=== PATIENT | female | born 1985 | race African-American/Black ===

== ENCOUNTER 2017-04-14 00:57 | Emergency (ER) | payer MEDICAID ==
[~2017-04-14] VITALS: Ht 165.1 cm; Wt 70.0 kg
[2017-04-14 02:15] VITALS: BP 113/87
== END 2017-04-14 05:29 | disposition left against medical advice (07) ==
LOC: ER 03:19
DX: J02.9 Acute pharyngitis, unspecified (principal); Z53.21 Procedure and treatment not carried out due to patient leaving prior to being seen by health care provider

== ENCOUNTER 2017-04-27 02:22 | Emergency (ER) | payer MEDICAID ==
[~2017-04-27] VITALS: Ht 165.1 cm; Wt 77.5 kg
[2017-04-27 03:08] VITALS: BP 138/94
== END 2017-04-27 03:34 | disposition left against medical advice (07) ==
LOC: ER 02:22
DX: Z04.8 Encounter for examination and observation for other specified reasons (principal); Z53.21 Procedure and treatment not carried out due to patient leaving prior to being seen by health care provider

== ENCOUNTER 2020-03-22 11:10 | Emergency (ER) | payer MEDICAID ==
[~2020-03-22] VITALS: Ht 165.1 cm; Wt 73.0 kg
[2020-03-22 11:13] VITALS: BP 152/104
== END 2020-03-22 16:16 | disposition left against medical advice (07) ==
LOC: ER 11:10
DX: R07.89 Other chest pain (principal); Z53.21 Procedure and treatment not carried out due to patient leaving prior to being seen by health care provider
CPT/HCPCS: 82962; 93005

== ENCOUNTER 2020-11-25 01:32 | Observation (INO) | payer MEDICAID, OTHER | END 2020-11-25 02:40 | disposition home or self-care, planned readmission (81) | LOC: 8 EST A/PP 01:32 | PROVIDERS: ADMIT Obstetrics & Gynecology; ATTEND Obstetrics & Gynecology | DX: O26.892 Other specified pregnancy related conditions, second trimester (principal); R55 Syncope and collapse; O30.003 Twin pregnancy, unspecified number of placenta and unspecified number of amniotic sacs, third trimester; Z3A.24 24 weeks gestation of pregnancy | CPT/HCPCS: 59025; 76805; 76810; 99281; G0378 ==

== ENCOUNTER 2020-12-04 08:46 | Observation (INO) | payer MEDICAID ==
[~2020-12-04] VITALS: Ht 165.1 cm; Wt 74.8 kg
[2020-12-04 11:24] LABS: CLARITY URINE CLEAR (CLEAR); COLOR URINE YELLOW (YELLOW); KETONES URINE NEGATIVE (NEGATIVE); LEUKOCYTE ESTERASE URINE TRACE (NEGATIVE); NITRITE URINE NEGATIVE (NEGATIVE); OCCULT BLOOD URINE 3+ (NEGATIVE); PROTEIN URINE NEGATIVE (NEGATIVE); SPECIFIC GRAVITY URINE 1.022 (1.005-1.030)
[2020-12-04 11:45] LABS: *BARBITURATES SCREEN URINE NEGATIVE (NEGATIVE); *BENZODIAZEPINES SCREEN URINE NEGATIVE (NEGATIVE)
[2020-12-04 11:46] LABS: *COCAINE SCREEN URINE NEGATIVE (NEGATIVE); METHADONE URINE SCREEN NEGATIVE (NEGATIVE); OPIATES URINE SCREEN NEGATIVE (NEGATIVE)
[2020-12-04 12:03] LABS: *AMPHETAMINES SCREEN URINE PRESUMTIVE POSITIVE (NEGATIVE); CANNABINOID URINE SCREEN PRESUMTIVE POSITIVE (NEGATIVE); PHENCYCLIDINE URINE SCREEN PRESUMTIVE POSITIVE (NEGATIVE)
[2020-12-04 12:20] LABS: BASOPHILS % 0.4 % (0.0-2.0); EOSINOPHILS % 0.7 % (0.0-5.0); HEMATOCRIT. 32.1 % (36.0-48.0); HEMOGLOBIN. 10.6 g/dL (12.0-16.0); MEAN CORPUSCULAR HEMOGLOBIN 29.6 pg (28.0-32.0); MEAN CORPUSCULAR VOLUME 89.8 fL (81.0-99.0); MEAN PLATELET VOLUME 9.3 fl (7.4-10.4); NEUTROPHILS % 63.9 % (40.0-76.0); PLATELET 218 x1000/uL (130-400); RED BLOOD CELL COUNT 3.57 mill/uL (4.2-5.4); RED CELL DISTRIBUTION WIDTH 15.8 % (11.6-14.6)
[2020-12-04] MEDS ORDERED: LACTATED RINGERS 1,000 ML IV ONE (12:45)
[2020-12-04] MEDS ORDERED: CEFAZOLIN 2,000 MG in DEXT 5% WATER 100 ML IV NR (14:00)
== END 2020-12-04 14:50 | disposition home or self-care (01) ==
LOC: 8 EST LDRP 08:46
PROVIDERS: ADMIT Obstetrics & Gynecology; ATTEND Obstetrics & Gynecology
DX: O30.002 Twin pregnancy, unspecified number of placenta and unspecified number of amniotic sacs, second trimester (principal); O46.92 Antepartum hemorrhage, unspecified, second trimester; Z3A.26 26 weeks gestation of pregnancy
CPT/HCPCS: 36415; 59025; 76805; 76818; 80305; 81003; 85025; 86850; 86900; 86901; 96361; 96365; G0378; J0690; J7060; 80349; 80359; 83992; 96360; 99281

== ENCOUNTER 2021-09-15 00:11 | Emergency (ER) | payer MEDICAID ==
[~2021-09-15] VITALS: Ht 154.9 cm; Wt 63.0 kg
[2021-09-15 02:14] LABS: BASOPHILS % 0.5 % (0.0-2.0); EOSINOPHILS % 1.1 % (0.0-5.0); HEMATOCRIT. 36.7 % (36.0-48.0); HEMOGLOBIN. 11.8 g/dL (12.0-16.0); LYMPHOCYTES % 14.1 % (20.0-50.0); MEAN CORPUSCULAR HEMOGLOBIN 27.8 pg (28.0-32.0); MEAN CORPUSCULAR VOLUME 86.7 fL (81.0-99.0); MEAN PLATELET VOLUME 10.5 fl (7.4-10.4); MONOCYTES % 9.5 % (2.0-8.0); NEUTROPHILS % 74.8 % (40.0-76.0); PLATELET 291 x1000/uL (130-400); RED BLOOD CELL COUNT 4.24 mill/uL (4.2-5.4); RED CELL DISTRIBUTION WIDTH 17.1 % (11.6-14.6)
[2021-09-15] MEDS ORDERED: SODIUM CHLORIDE 0.9% 1,000 ML IV ONE (02:15)
[2021-09-15 02:21] LABS: CHLORIDE 109 mEq/L (98-107)
[2021-09-15 02:26] VITALS: BP 158/108
[2021-09-15 02:28] LABS: HCG SCREEN NEGATIVE
[2021-09-15 02:34] LABS: B-HCG QUANTITATIVE < 1 mIU/mL (<3); ETHANOL BLOOD < 10 mg/dL
[2021-09-15] MEDS ORDERED: NALO4SPR BOTHNSTRLS (02:52)
[2021-09-15] MEDS ORDERED: CEPH500C2 MT (02:52)
[2021-09-15] MEDS ORDERED: ACETAMINOPHEN 325MG TABLET PO ONE (03:15)
[2021-09-15 03:35] LABS: CLARITY URINE CLEAR (CLEAR); COLOR URINE YELLOW (YELLOW); KETONES URINE NEGATIVE (NEGATIVE); LEUKOCYTE ESTERASE URINE NEGATIVE (NEGATIVE); NITRITE URINE NEGATIVE (NEGATIVE); OCCULT BLOOD URINE NEGATIVE (NEGATIVE); PROTEIN URINE NEGATIVE (NEGATIVE); SPECIFIC GRAVITY URINE 1.024 (1.005-1.030)
[2021-09-15 03:51] LABS: *BARBITURATES SCREEN URINE NEGATIVE (NEGATIVE); *BENZODIAZEPINES SCREEN URINE NEGATIVE (NEGATIVE); *COCAINE SCREEN URINE NEGATIVE (NEGATIVE); METHADONE URINE SCREEN NEGATIVE (NEGATIVE); OPIATES URINE SCREEN NEGATIVE (NEGATIVE)
[2021-09-15 04:38] LABS: *AMPHETAMINES SCREEN URINE PRESUMTIVE POSITIVE (NEGATIVE); CANNABINOID URINE SCREEN PRESUMTIVE POSITIVE (NEGATIVE); PHENCYCLIDINE URINE SCREEN PRESUMTIVE POSITIVE (NEGATIVE)
== END 2021-09-15 04:07 | disposition home or self-care (01) ==
LOC: ER 00:11
DX: L03.317 Cellulitis of buttock (principal); F15.10 Other stimulant abuse, uncomplicated; F12.10 Cannabis abuse, uncomplicated; F16.10 Hallucinogen abuse, uncomplicated; F41.9 Anxiety disorder, unspecified; I10 Essential (primary) hypertension; Z98.890 Other specified postprocedural states
CPT/HCPCS: 36415; 80053; 80305; 80307; 80320; 80329; 81003; 84702; 84703; 85025; 96360; 99283; J7030; G0480

== ENCOUNTER 2022-07-05 06:23 | Emergency (ER) | payer MEDICAID ==
[~2022-07-05] VITALS: Ht 165.1 cm; Wt 102.1 kg
[~2022-07-05 06:23] MED LIST: CEPH500C2 MT; NALO4SPR BOTHNSTRLS
[2022-07-05 06:30] VITALS: BP 153/99
== END 2022-07-05 12:27 | disposition left against medical advice (07) ==
LOC: ER 06:23
DX: R68.89 Other general symptoms and signs (principal); Z53.21 Procedure and treatment not carried out due to patient leaving prior to being seen by health care provider
CPT/HCPCS: 99281

== ENCOUNTER 2022-07-08 23:14 | Emergency (ER) | payer MEDICAID ==
[~2022-07-08] VITALS: Ht 165.1 cm; Wt 107.0 kg
[2022-07-08 23:53] VITALS: BP 133/90
[2022-07-09] MEDS ORDERED: ACETAMINOPHEN 325MG TABLET PO ONE (03:00)
[2022-07-09 03:32] LABS: *BARBITURATES SCREEN URINE NEGATIVE (NEGATIVE); *BENZODIAZEPINES SCREEN URINE NEGATIVE (NEGATIVE); *COCAINE SCREEN URINE NEGATIVE (NEGATIVE); METHADONE URINE SCREEN NEGATIVE (NEGATIVE); OPIATES URINE SCREEN NEGATIVE (NEGATIVE)
[2022-07-09 03:34] LABS: *AMPHETAMINES SCREEN URINE PRESUMTIVE POSITIVE (NEGATIVE); CANNABINOID URINE SCREEN PRESUMTIVE POSITIVE (NEGATIVE); PHENCYCLIDINE URINE SCREEN PRESUMTIVE POSITIVE (NEGATIVE)
== END 2022-07-09 02:55 | disposition home or self-care (01) ==
LOC: ER 23:14
DX: R05.9 Cough, unspecified (principal); I10 Essential (primary) hypertension; J45.909 Unspecified asthma, uncomplicated; Z98.890 Other specified postprocedural states; Z86.59 Personal history of other mental and behavioral disorders
CPT/HCPCS: 71045; 80305; 81025; 93005; 99285

== ENCOUNTER 2022-09-12 04:46 | Emergency (ER) | payer MEDICAID ==
[~2022-09-12] VITALS: Ht 165.1 cm; Wt 89.9 kg
[2022-09-12 04:59] VITALS: BP 144/90
[2022-09-12] MEDS ORDERED: METH-653 MT (06:05)
[2022-09-12] MEDS ORDERED: TOPUD MT (06:05)
== END 2022-09-12 06:20 | disposition home or self-care (01) ==
LOC: ER 04:46
DX: M79.605 Pain in left leg (principal); M79.604 Pain in right leg; I10 Essential (primary) hypertension; J45.909 Unspecified asthma, uncomplicated; Z98.890 Other specified postprocedural states; Z86.59 Personal history of other mental and behavioral disorders
CPT/HCPCS: 99281; 99283

== ENCOUNTER 2024-07-14 15:44 | Emergency (ER) | payer MEDICAID ==
[~2024-07-14] VITALS: Ht 167.6 cm; Wt 69.0 kg
[~2024-07-14 15:44] MED LIST changes: -CEPH500C2 MT; +KEPP500 MT; +QUET50TA PO; +TOPUD MT; +albuterol; +keppra
[2024-07-14 17:31] LABS: EOSINOPHILS % 3.9 % (0.0-5.0); HEMOGLOBIN. 10.6 g/dL (12.0-16.0); LYMPHOCYTES % 35.6 % (20.0-50.0); MEAN CORPUSCULAR HEMOGLOBIN 27.1 pg (28.0-32.0); MEAN CORPUSCULAR HGB CONC 31.2 g/dL (31.0-37.0); MEAN CORPUSCULAR VOLUME 86.7 fL (81.0-99.0); MEAN PLATELET VOLUME 9.7 fl (7.4-10.4); NEUTROPHILS % 47.5 % (40.0-76.0); PLATELET 277 x1000/uL (130-400); RED BLOOD CELL COUNT 3.92 mill/uL (4.2-5.4); RED CELL DISTRIBUTION WIDTH 15.8 % (11.6-14.6); WHITE BLOOD COUNT 4.5 x1000/uL (4.5-11.0)
[2024-07-14 17:35] LABS: CHLORIDE 109 mEq/L (98-107); POTASSIUM 3.4 mEq/L (3.5-5.1); SODIUM 149 mEq/L (136-145)
[2024-07-14 17:36] LABS: CALCIUM 9.5 mg/dL (8.7-10.4); CARBON DIOXIDE 28 mEq/L (21-32)
[2024-07-14 17:41] LABS: CREATININE 0.9 mg/dL (0.6-1.0); GLUCOSE 81 mg/dL (70-105)
[2024-07-14 17:42] LABS: ETHANOL BLOOD < 10 mg/dL (<10); HCG SCREEN NEGATIVE; UREA NITROGEN BLOOD 14 mg/dL (9-23)
[2024-07-14 17:43] LABS: ACETAMINOPHEN < 2 ug/mL (10-30)
[2024-07-14] MEDS: LORAZEPAM 2MG/ML INJ IM ONE (20:10)
[2024-07-14] MEDS: DIPHENHYDRAMINE 50MG/ML VIAL IM ONE (20:11)
[2024-07-14] MEDS: HALOPERIDOL LACTATE 5MG/ML VIAL IM ONE (20:11)
[2024-07-14 20:44] LABS: CLARITY URINE CLEAR (CLEAR); COLOR URINE YELLOW (YELLOW); GLUCOSE URINE NEGATIVE (NEGATIVE); KETONES URINE NEGATIVE (NEGATIVE); LEUKOCYTE ESTERASE URINE NEGATIVE (NEGATIVE); NITRITE URINE NEGATIVE (NEGATIVE); OCCULT BLOOD URINE NEGATIVE (NEGATIVE); PH URINE 7.5 (4.5-8.0); PROTEIN URINE NEGATIVE (NEGATIVE); SPECIFIC GRAVITY URINE 1.013 (1.005-1.030)
[2024-07-14 20:56] LABS: *AMPHETAMINES SCREEN URINE PRESUMPTIVE POSITIVE (NEGATIVE); *BARBITURATES SCREEN URINE NEGATIVE (NEGATIVE); *BENZODIAZEPINES SCREEN URINE NEGATIVE (NEGATIVE); *COCAINE SCREEN URINE NEGATIVE (NEGATIVE); METHADONE URINE SCREEN NEGATIVE (NEGATIVE); OPIATES URINE SCREEN NEGATIVE (NEGATIVE)
[2024-07-14 20:57] LABS: CANNABINOID URINE SCREEN PRESUMPTIVE POSITIVE (NEGATIVE); ECSTASY MDMA SCREEN URINE NEGATIVE (NEGATIVE); PHENCYCLIDINE URINE SCREEN PRESUMTIVE POSITIVE (NEGATIVE)
[2024-07-14 21:49] LABS: CHLORIDE 110 mEq/L (98-107); POTASSIUM 3.7 mEq/L (3.5-5.1); SODIUM 145 mEq/L (136-145)
[2024-07-14 21:50] LABS: CARBON DIOXIDE 26 mEq/L (21-32)
[2024-07-14 21:55] LABS: CREATININE 0.6 mg/dL (0.6-1.0); GLUCOSE 121 mg/dL (70-105); UREA NITROGEN BLOOD 14 mg/dL (9-23)
[2024-07-16 04:16] VITALS: O2SAT 98
[2024-07-16] MEDS: MIDAZOLAM HCL 2 MG/2 ML VIAL IM ONE (04:16)
[2024-07-16] MEDS: HALOPERIDOL LACTATE 5MG/ML VIAL IM ONE ×2 (04:18→18:03)
[2024-07-16] MEDS: LORAZEPAM 2MG/ML INJ IM ONE (18:03)
[2024-07-16] MEDS: QUETIAPINE FUMARATE 50MG TABLET PO SCH (21:37)
[2024-07-17 09:25] VITALS: BP 129/66; PULSE 66; RESP 18; TEMP 36.7; O2SAT 99
== END 2024-07-17 09:26 | disposition home or self-care (01) ==
LOC: ER 15:44
DX: R45.851 Suicidal ideations (principal); F15.10 Other stimulant abuse, uncomplicated; R51.9 Headache, unspecified; F31.9 Bipolar disorder, unspecified; Z20.822 Contact with and (suspected) exposure to COVID-19; Z91.148 Patient's other noncompliance with medication regimen for other reason; Z86.59 Personal history of other mental and behavioral disorders; Z98.890 Other specified postprocedural states
CPT/HCPCS: 80305; 80048; 81003; 80307; 80329; 80320; 84703; 83735; 85025; 36415; 71045; 70450; 93005; 96372 ×2; 99291; 87426; J1200; J1630 ×2; J2060 ×2; Z7610 ×2; J2250; A4565; G0480